=== PATIENT | female | born 1975 ===

== ENCOUNTER 2016-09-07 21:29 | Observation (INO) | payer OTHER ==
[2016-09-07 21:32] VITALS: BMI 27.4
--- NOTE | 2016-09-07 22:09 | ED PDOC ---
Arrival/HPI - General Chief Complaint: Syncope Time Seen by Provider: 09/07/16 21:30 Historian: Patient - History of Present Illness Narrative History of Present Illness (Text): 09/07/16 22:09 A 41 year old female brought in by EMS to the emergency department complaining of lower abdominal pain. Patient reports she ate something and developed pain, currently shaking. EMS reports patient was hypotensive in field. Patient reports urinary incontinence but denies any other complaints at this time. Symptom Onset: Sudden Symptom Course: Unchanged Activities at Onset: Rest Context: Home Past Medical History - Provider Review Nursing Documentation Reviewed: Yes - Infectious Disease Hx of Infectious Diseases: None - Cardiac Hx Hypertension: Yes - Musculoskeletal/Rheumatological Hx Arthritis: Yes Hx Rheumatoid Arthritis: Yes - Psychiatric Hx Substance Use: No - Anesthesia Hx Anesthesia: No Family/Social History - Physician Review Nursing Documentation Reviewed: Yes Family/Social History: No Known Family HX Smoking Status: Never Smoked Hx Alcohol Use: No Hx Substance Use: No Allergies/Home Meds Allergies/Adverse Reactions: Allergies shellfish derived Allergy (Verified 09/07/16 21:32) RASH Review of Systems - Physician Review All systems were reviewed & negative as marked: Yes - Review of Systems Gastrointestinal: Abdominal Pain Genitourinary Female: Other (urinary incontinence) Physical Exam Vital Signs Reviewed: Yes Vital Signs Temp Pulse Resp BP Pulse Ox 09/07/16 22:55 110 H 20 156/95 H 99 09/07/16 21:36 97.9 F 99 H 20 108/59 L 100 Temperature: Afebrile Blood Pressure: Hypotensive Pulse: Regular Respiratory Rate: Normal Appearance: Positive for: Well-Appearing, Non-Toxic, Other (shaky) Pain Distress: None Mental Status: Positive for: Alert and Oriented X 3 - Systems Exam Head: Present: Atraumatic, Normocephalic Pupils: Present: PERRL Extroacular Muscles: Present: EOMI Conjunctiva: Present: Normal Mouth: Present: Moist Mucous Membranes Neck: Present: Normal Range of Motion Respiratory/Chest: Present: Clear to Auscultation, Good Air Exchange. No: Respiratory Distress, Accessory Muscle Use Cardiovascular: Present: Regular Rate and Rhythm, Normal S1, S2. No: Murmurs Abdomen: Present: Normal Bowel Sounds. No: Tenderness, Distention, Peritoneal Signs Back: Present: Normal Inspection Upper Extremity: Present: Normal Inspection. No: Cyanosis, Edema Lower Extremity: Present: Normal Inspection. No: Edema Neurological: Present: GCS=15, CN II-XII Intact, Speech Normal Skin: Present: Warm, Dry, Normal Color. No: Rashes Psychiatric: Present: Alert, Oriented x 3, Normal Insight, Normal Concentration Medical Decision Making ED Course and Treatment: 09/07/16 22:03 Impression: A 41 year old female with lower abdominal pain. Differential Diagnosis included but are not limited to: Plan: -- EKG -- CT head -- CT abd/pelvis -- labs -- Urinalysis -- IV fluids, Zofran -- Reassess and disposition Progress Notes: EKG: Ordered, reviewed, and independently interpreted the EKG. Rate : 98 BPM Rhythm : NSR Interpretation : No ST-segment elevations or depressions, no T-wave inversions, normal intervals. Comparison : No previous EKG for comparison. CT Head Without Intravenous Contrast FINDINGS: BRAIN: Mild, diffuse cortical atrophy and ventriculomegaly, which appear somewhat advanced for age. Recommend clinical correlation. No significant acute abnormality identified. No acute hemorrhage seen within the brain. No acute extra-axial fluid collections visualized. No evidence of significant mass effect within the brain. Normal andres-white matter differentiation. VENTRICLES: See above. BONES/JOINTS: No acute fractures or other acute bony abnormality noted. SOFT TISSUES: No acute abnormality of the visualized soft tissues is seen. SINUSES: Visualized paranasal sinuses appear clear. MASTOID AIR CELLS: Mastoid air cells appear clear. IMPRESSION: - No acute findings seen within the brain. - See above for remaining findings. Dictated and Authenticated by: Sharmila oFntana MD 09/07/2016 11:43 PM Eastern Time ([place] & [place]) CT Abdomen and Pelvis Without Intravenous Contrast FINDINGS: LIMITATIONS: Mild streak/motion artifact. LOWER THORAX: No infiltrate seen in the lung bases. ABDOMEN: LIVER: Hepatomegaly, with the liver measuring 19 cm in length on the coronal images. GALLBLADDER AND BILE DUCTS: No CT evidence of acute cholecystitis. No evidence of significant biliary ductal dilatation. PANCREAS: No CT evidence of acute pancreatitis. SPLEEN: No acute abnormality of the spleen identified. ADRENALS: No acute abnormality of the adrenal glands identified. KIDNEYS AND URETERS: No acute abnormality of the kidneys seen. STOMACH AND BOWEL: Colonic diverticulosis, with no evidence of acute diverticulitis. Otherwise, no significant abnormality of the bowel is identified. No evidence of bowel obstruction. APPENDIX: Appendix is seen, and is within normal limits in appearance. PELVIS: BLADDER: No acute abnormality of the bladder identified. REPRODUCTIVE: Small 2 cm left ovarian/adnexal cystic lesion. This has a benign appearance by CT. No followup is warranted based on the imaging findings, unless otherwise clinically indicated. No acute abnormality of the uterus identified. ABDOMEN and PELVIS: INTRAPERITONEAL SPACE: Small amount of free fluid in the cul-de-sac. This is most likely physiologic in nature. No evidence of free air. BONES/JOINTS: Bony structures appear demineralized. SOFT TISSUES: No acute abnormality of the visualized soft tissues is seen. VASCULATURE: No evidence of abdominal aortic aneurysm. No evidence of periaortic hemorrhage. LYMPH NODES: No evidence of diffuse lymphadenopathy. IMPRESSION: - No evidence of significant acute process on this unenhanced exam. - See above for remaining findings. Dictated and Authenticated by: Sharmila Fontana MD 09/07/2016 11:59 PM Eastern Time ([place] & [place]) case discussed with with medical intern and reyna darling will tele obs for syncope 09/12/16 20:07 - Lab Interpretations Microbiology Results: Microbiology Results 09/07/16 22:05 Blood Blood Culture - Preliminary NO GROWTH AFTER 4 DAYS 09/07/16 21:45 Blood Blood Culture - Preliminary NO GROWTH AFTER 4 DAYS 09/07/16 22:45 Urine,Clean Catch Urine Culture - Final No Growth (<1,000 CFU/ML) Lab Results: 09/07/16 21:45 09/07/16 21:45 Lab Results 09/07/16 23:00: Urine Opiates Screen Negative, Urine Methadone Screen Negative, Ur Barbiturates Screen Negative, Ur Phencyclidine Scrn Negative, Ur Amphetamines Screen Negative, U Benzodiazepines Scrn Negative, U Oth Cocaine Metabols Negative, U Cannabinoids Screen Negative 09/07/16 22:45: Urine Color [place], Urine Appearance Sl cloudy, Urine pH 7.0, Ur Specific [place] 1.020, Urine Protein 30 H, Urine Glucose (UA) Negative, Urine Ketones Trace H, Urine Blood Negative, Urine Nitrate Positive H, Urine Bilirubin Small H, Urine Urobilinogen 1.0 H, Ur Leukocyte Esterase Trace H, Urine RBC 0 - 2, Urine WBC 1 - 3, Ur Epithelial Cells 6 - 8, Urine Bacteria Large 09/07/16 21:45: Sodium 137, Chloride 102, Potassium 3.4 L, Carbon Dioxide 22, Anion Gap 16, BUN 17, Creatinine 0.9, Est GFR ( Amer) > 60, Est GFR (Non- Af Amer) > 60, Random Glucose 131 H, Calcium 8.9, Phosphorus 3.8, Magnesium 1.7 , Total Bilirubin 0.6, AST 54 H, ALT 57 H, Alkaline Phosphatase 62, Troponin I < 0.01, Total Protein 7.2, Albumin 4.0, Globulin 3.2, Albumin/Globulin Ratio 1.3 09/07/16 21:45: pO2 37, VBG pH 7.33, VBG pCO2 49.0, VBG HCO3 25.8, VBG Total CO2 27.3, VBG O2 Sat (Calc) 72.0 H, VBG Base Excess -0.7 L, VBG Potassium 4.1, Sodium 138.0, Chloride 102.0, Glucose 145 H, Lactate 3.1 H, FiO2 21.0, Venous Blood Potassium 4.1 09/07/16 21:45: PT 11.1, INR 1.03, APTT 24.3 09/07/16 21:45: WBC 6.1, RBC 4.18, Hgb 13.0, Hct 39.5, MCV 94.5, MCH 31.1, MCHC 32.9, RDW 12.4, Plt Count 266, MPV 11.5 H, Gran % 38.1 L, Lymph % (Auto) 57.0 H , [place] % (Auto) 2.9, Eos % (Auto) 1.8, Baso % (Auto) 0.2, Gran # 2.34, Lymph # 3.5 H, [place] # 0.2, Eos # 0.1, Baso # 0.01 I have reviewed the lab results: Yes - RAD Interpretation Radiology Orders: 09/07/16 22:50 ABD & PELVIS W/O PO OR IV CONT [CT] Stat 09/07/16 22:56 HEAD W/O CONTRAST [CT] Stat - EKG Interpretation Interpreted by ED Physician: Yes Type: 12 lead EKG - Medication Orders Current Medication Orders: Discontinued Medications Acetaminophen (Tylenol 325mg Tab) 650 mg PO Q4H PRN PRN Reason: Fever >100.4 F Last Admin: 09/08/16 01:30 Dose: 650 mg Sodium Chloride 2,100 ml/ IV (SUPPLIES) 2,100 mls @ 4,354.5 mls/hr IV ONCE ONE PRN Reason: 60 ML/KG/HR Stop: 09/07/16 21:40 Last Admin: 09/07/16 22:20 Dose: 4,354.5 mls/hr Cefepime HCl (Maxipime 1gm) 1 gm in 100 mls @ 100 mls/hr IVPB Q12 JOSIE PRN Reason: Protocol Last Admin: 09/09/16 09:37 Dose: 100 mls/hr Sodium Chloride (Sodium Chloride 0.9%) 1,000 mls @ 100 mls/hr IV .Q10H JOSIE Last Admin: 09/09/16 15:53 Dose: 100 mls/hr Ibuprofen (Motrin Tab) 400 mg PO Q6H PRN PRN Reason: Headache Ondansetron HCl (Zofran Inj) 4 mg IVP STAT STA Stop: 09/07/16 22:51 Last Admin: 09/07/16 22:59 Dose: Not Given Non-Admin Reason: Patient Refused Pantoprazole Sodium (Protonix Inj) 40 mg IVP DAILY [facility] Last Admin: 09/09/16 09:36 Dose: 40 mg - Scribe Statement The provider has reviewed the documentation as recorded by the Talat Brower Provider Scribe Attestation: All medical record entries made by the Scribchristian were at my direction and personally dictated by me. I have reviewed the chart and agree that the record accurately reflects my personal performance of the history, physical exam, medical decision making, and the department course for this patient. I have also personally directed, reviewed, and agree with the discharge instructions and disposition. Disposition/Present on Arrival - Present on Arrival Any Indicators Present on Arrival: No History of DVT/PE: No History of Uncontrolled Diabetes: No Urinary Catheter: No History of Decub. Ulcer: No History Surgical Site Infection Following: None - Disposition Have Diagnosis and Disposition been Completed?: Yes Diagnosis: Syncope Disposition: HOSPITALIZED Disposition Time: 00:25 Condition: GOOD
[2016-09-07 22:28] LABS: VENOUS BLOOD GAS BASE EXCESS -0.7 mmol/L (0.0-2.0); VENOUS BLOOD GAS PO2 37 mm/Hg (30-55); VENOUS BLOOD PH 7.33 (7.32-7.43)
[2016-09-07 22:36] LABS: ALB/GLOB RATIO 1.3 (1.1-1.8); ALT/SGPT 57 U/L (7-56); AST/SGOT 54 U/L (15-39); BLOOD UREA NITROGEN 17 mg/dL (7-21); CALCIUM 8.9 mg/dL (8.4-10.5); GFR AFRICAN-AMERICAN > 60; GFR NON-AFRICAN AMERICAN > 60; MAGNESIUM 1.7 mg/dL (1.7-2.2)
[2016-09-07 22:40] LABS: BASO # 0.01 K/mm3 (0.0-2.0); BASO % 0.2 % (0.0-3.0); EOS # 0.1 (0.0-0.7); EOS % 1.8 % (1.5-5.0); GRAN # 2.34 (1.4-6.5); GRAN % 38.1 % (50.0-68.0); LYMPH # 3.5 (1.2-3.4); MEAN CELL VOLUME 94.5 fL (80.0-105.0); MEAN CORPUSCULAR HEMOGLOBIN 31.1 pg (25.0-35.0); MEAN CORPUSCULAR HGB CONC 32.9 g/dl (31.0-37.0); MEAN PLATELET VOLUME 11.5 fl (7.0-11.0); MONO # 0.2 (0.1-0.6); MONO % 2.9 % (1.0-6.0); PLATELET COUNT 266 10^3/uL (120.0-450.0); RBC 4.18 10^6/uL (3.5-6.1); RED CELL DISTRIBUTION WIDTH 12.4 % (11.5-14.5); WHITE BLOOD COUNT 6.1 10^3/ul (4.5-11.0)
[2016-09-07 22:53] LABS: INR 1.03 (0.93-1.08); PARTIAL THROMBOPLASTIN TIME 24.3 Seconds (23.7-30.8); PROTHROMBIN TIME 11.1 Seconds (9.9-11.8)
[2016-09-07 22:54] LABS: TROPONIN I < 0.01 ng/mL
[2016-09-07 22:54] LABS: URINE BILIRUBIN SMALL (NEGATIVE); URINE BLOOD NEGATIVE (NEGATIVE); URINE GLUCOSE (UA) NEGATIVE (NEGATIVE); URINE LEUKOCYTE ESTERASE TRACE Leu/uL (NEGATIVE); URINE NITRATE POSITIVE (NEGATIVE); URINE PROTEIN 30 mg/dL (<30 mg/dL)
[2016-09-07 22:56] LABS: URINE APPEARANCE SL CLOUDY (CLEAR); URINE COLOR ORANGE (YELLOW)
[2016-09-07 23:10] LABS: URINE RBC 0 - 2 /hpf (0-2)
[2016-09-07 23:11] LABS: URINE BACTERIA LARGE (NEG)
[2016-09-07 23:29] LABS: BARBITURATES, UR NEGATIVE (NEGATIVE); BENZODIAZEPINES, UR NEGATIVE (NEGATIVE); OPIATES, UR NEGATIVE (NEGATIVE); PHENCYCLIDINE, UR NEGATIVE (NEGATIVE)
--- NOTE | 2016-09-07 23:43 | CT ---
EXAM: CT Head Without Intravenous Contrast CLINICAL HISTORY: 41 years old, female; Signs and symptoms; Dizziness and syncope and collapse TECHNIQUE: Axial computed tomography images of the head/brain without intravenous contrast. This CT exam was performed using one or more of the following dose reduction techniques: automated exposure control, adjustment of the mA and/or kV according to patient size, and/or use of iterative reconstruction technique. EXAM DATE/TIME: 09/07/2016 10:56 PM COMPARISON: No relevant prior studies available. FINDINGS: BRAIN: Mild, diffuse cortical atrophy and ventriculomegaly, which appear somewhat advanced for age. Recommend clinical correlation. No significant acute abnormality identified. No acute hemorrhage seen within the brain. No acute extra-axial fluid collections visualized. No evidence of significant mass effect within the brain. Normal andres-white matter differentiation. VENTRICLES: See above. BONES/JOINTS: No acute fractures or other acute bony abnormality noted. SOFT TISSUES: No acute abnormality of the visualized soft tissues is seen. SINUSES: Visualized paranasal sinuses appear clear. MASTOID AIR CELLS: Mastoid air cells appear clear. IMPRESSION: - No acute findings seen within the brain. - See above for remaining findings.
--- NOTE | 2016-09-07 23:59 | CT ---
EXAM: CT Abdomen and Pelvis Without Intravenous Contrast CLINICAL HISTORY: 41 years old, female; Pain; Abdominal pain; Generalized; Additional info: Abd pain TECHNIQUE: Axial computed tomography images of the abdomen and pelvis without intravenous contrast. This CT exam was performed using one or more of the following dose reduction techniques: automated exposure control, adjustment of the mA and/or kV according to patient size, and/or use of iterative reconstruction technique. Coronal and sagittal reformatted images were created and reviewed. EXAM DATE/TIME: 09/07/2016 10:50 PM COMPARISON: No relevant prior studies available. FINDINGS: LIMITATIONS: Mild streak/motion artifact. LOWER THORAX: No infiltrate seen in the lung bases. ABDOMEN: LIVER: Hepatomegaly, with the liver measuring 19 cm in length on the coronal images. GALLBLADDER AND BILE DUCTS: No CT evidence of acute cholecystitis. No evidence of significant biliary ductal dilatation. PANCREAS: No CT evidence of acute pancreatitis. SPLEEN: No acute abnormality of the spleen identified. ADRENALS: No acute abnormality of the adrenal glands identified. KIDNEYS AND URETERS: No acute abnormality of the kidneys seen. STOMACH AND BOWEL: Colonic diverticulosis, with no evidence of acute diverticulitis. Otherwise, no significant abnormality of the bowel is identified. No evidence of bowel obstruction. APPENDIX: Appendix is seen, and is within normal limits in appearance. PELVIS: BLADDER: No acute abnormality of the bladder identified. REPRODUCTIVE: Small 2 cm left ovarian/adnexal cystic lesion. This has a benign appearance by CT. No followup is warranted based on the imaging findings, unless otherwise clinically indicated. No acute abnormality of the uterus identified. ABDOMEN and PELVIS: INTRAPERITONEAL SPACE: Small amount of free fluid in the cul-de-sac. This is most likely physiologic in nature. No evidence of free air. BONES/JOINTS: Bony structures appear demineralized. SOFT TISSUES: No acute abnormality of the visualized soft tissues is seen. VASCULATURE: No evidence of abdominal aortic aneurysm. No evidence of periaortic hemorrhage. LYMPH NODES: No evidence of diffuse lymphadenopathy. IMPRESSION: - No evidence of significant acute process on this unenhanced exam. - See above for remaining findings.
[2016-09-08 01:05] LABS: VENOUS BLOOD GAS BASE EXCESS -0.4 mmol/L (0.0-2.0); VENOUS BLOOD GAS PO2 129 mm/Hg (30-55); VENOUS BLOOD PH 7.38 (7.32-7.43)
[2016-09-08] MEDS: Cefepime 1gm in NS 100ml 1 GM/100 ML BAG IVPB SCH ×3 (01:29→21:43)
[2016-09-08] MEDS: Sodium Chloride 0.9% 1,000 ML IV SCH ×2 (01:29→09:59)
--- NOTE | 2016-09-08 01:41 | CP.PCM.HP ---
History of Present Illness - History of Present Illness History of Present Illness: cc: syncope HPI: Patient is a 41yo female with past medical history of urinary incontinence s/p sling, rheumatoid arthritis, migraines that presents s/p syncopal episode. Patient reports that she was at home and eating dinner when she felt lightheaded and dizzy. She reported sudden flushing, warmth and chills and instructed her uncle to call 911. She states she was on the phone with the freight dispatcher who instructed her to lay down however the next thing she recalls is waking up in the ambulance. She reported that her uncle was holding her when she passed out and denied hitting her head. She stated that yesterday she was in her normal state of health. Denies incidents like this in the past. Denies chest pain, abdominal pain, nausea, vomiting, cough, focal weakness, numbness, tingling, dysuria, frequency, urgency. 12 point ROS as per HPI, otherwise negative PMHx: rheumatoid arthritis, migraines, urinary incontinence PSHx: vaginal sling Medications: denies taking any meds for RA or migraines at this time Allergies: shellfish Family Hx: mother: RA, heart problems; Father: seizure disorder Social Hx: denies alcohol, tobacco and illicit drug use Present on Admission - Present on Admission Any Indicators Present on Admission: No Past Patient History - Infectious Disease Hx of Infectious Diseases: None - Past Social History Smoking Status: Never Smoked - CARDIAC Hx Hypertension: Yes - MUSCULOSKELETAL/RHEUMATOLOGICAL Hx Arthritis: Yes Hx Rheumatoid Arthritis: Yes - PSYCHIATRIC Hx Substance Use: No - SURGICAL HISTORY Hx Surgeries: No - ANESTHESIA Hx Anesthesia: No Meds Allergies/Adverse Reactions: Allergies Allergy/AdvReac Type Severity Reaction Status Date / Time shellfish derived Allergy RASH Verified 09/07/16 21:32 Physical Exam - Constitutional Appears: No Acute Distress - Head Exam Head Exam: ATRAUMATIC, NORMAL INSPECTION, NORMOCEPHALIC - Eye Exam Eye Exam: EOMI, PERRL - ENT Exam ENT Exam: Mucous Membranes Moist - Neck Exam Neck exam: Positive for: Normal Inspection - Respiratory Exam Respiratory Exam: Clear to Auscultation Bilateral. absent: Rales, Rhonchi, Wheezes - Cardiovascular Exam Cardiovascular Exam: RRR, +S1, +S2. absent: Gallop, Rubs, Systolic Murmur - GI/Abdominal Exam GI & Abdominal Exam: Soft. absent: Distended, Firm, Guarding, Rebound, Tenderness - Extremities Exam Extremities exam: Positive for: normal inspection, pedal pulses present. Negative for: calf tenderness, pedal edema, tenderness - Neurological Exam Neurological exam: Alert, CN II-XII Intact, Oriented x3 - Psychiatric Exam Psychiatric exam: Normal Affect, Normal Mood - Skin Skin Exam: Dry, Intact, Normal Color, Warm Results - Vital Signs Recent Vital Signs: Last Vital Signs Temp 97.9 F 09/07/16 21:36 Pulse 110 H 09/07/16 22:55 Resp 20 09/07/16 22:55 BP 156/95 H 09/07/16 22:55 Pulse Ox 99 09/07/16 22:55 - Labs Result Diagrams: 09/07/16 21:45 09/07/16 21:45 Labs: Laboratory Results - last 24 hr 09/07/16 09/07/16 09/07/16 21:45 21:45 21:45 WBC 6.1 RBC 4.18 Hgb 13.0 Hct 39.5 MCV 94.5 MCH 31.1 MCHC 32.9 RDW 12.4 Plt Count 266 MPV 11.5 H Gran % 38.1 L Lymph % (Auto) 57.0 H [place] % (Auto) 2.9 Eos % (Auto) 1.8 Baso % (Auto) 0.2 Gran # 2.34 Lymph # 3.5 H [place] # 0.2 Eos # 0.1 Baso # 0.01 PT 11.1 INR 1.03 APTT 24.3 pO2 37 VBG pH 7.33 VBG pCO2 49.0 VBG HCO3 25.8 VBG Total CO2 27.3 VBG O2 Sat (Calc) 72.0 H VBG Base Excess -0.7 L VBG Potassium 4.1 Sodium 138.0 Chloride 102.0 Glucose 145 H Lactate 3.1 H FiO2 21.0 Potassium Carbon Dioxide Anion Gap BUN Creatinine Est GFR ( Amer) Est GFR (Non-Af Amer) Random Glucose Calcium Phosphorus Magnesium Total Bilirubin AST ALT Alkaline Phosphatase Troponin I Total Protein Albumin Globulin Albumin/Globulin Ratio Venous Blood Potassium 4.1 Urine Color Urine Appearance Urine pH Ur Specific [place] Urine Protein Urine Glucose (UA) Urine Ketones Urine Blood Urine Nitrate Urine Bilirubin Urine Urobilinogen Ur Leukocyte Esterase Urine RBC Urine WBC Ur Epithelial Cells Urine Bacteria Urine Opiates Screen Urine Methadone Screen Ur Barbiturates Screen Ur Phencyclidine Scrn Ur Amphetamines Screen U Benzodiazepines Scrn U Oth Cocaine Metabols U Cannabinoids Screen 09/07/16 09/07/16 09/07/16 21:45 22:45 23:00 WBC RBC Hgb Hct MCV MCH MCHC RDW Plt Count MPV Gran % Lymph % (Auto) [place] % (Auto) Eos % (Auto) Baso % (Auto) Gran # Lymph # [place] # Eos # Baso # PT INR APTT pO2 VBG pH VBG pCO2 VBG HCO3 VBG Total CO2 VBG O2 Sat (Calc) VBG Base Excess VBG Potassium Sodium 137 Chloride 102 Glucose Lactate FiO2 Potassium 3.4 L Carbon Dioxide 22 Anion Gap 16 BUN 17 Creatinine 0.9 Est GFR ( Amer) > 60 Est GFR (Non-Af Amer) > 60 Random Glucose 131 H Calcium 8.9 Phosphorus 3.8 Magnesium 1.7 Total Bilirubin 0.6 AST 54 H ALT 57 H Alkaline Phosphatase 62 Troponin I < 0.01 Total Protein 7.2 Albumin 4.0 Globulin 3.2 Albumin/Globulin Ratio 1.3 Venous Blood Potassium Urine Color [place] Urine Appearance Sl cloudy Urine pH 7.0 Ur Specific [place] 1.020 Urine Protein 30 H Urine Glucose (UA) Negative Urine Ketones Trace H Urine Blood Negative Urine Nitrate Positive H Urine Bilirubin Small H Urine Urobilinogen 1.0 H Ur Leukocyte Esterase Trace H Urine RBC 0 - 2 Urine WBC 1 - 3 Ur Epithelial Cells 6 - 8 Urine Bacteria Large Urine Opiates Screen Negative Urine Methadone Screen Negative Ur Barbiturates Screen Negative Ur Phencyclidine Scrn Negative Ur Amphetamines Screen Negative U Benzodiazepines Scrn Negative U Oth Cocaine Metabols Negative U Cannabinoids Screen Negative 09/08/16 01:00 WBC RBC Hgb Hct MCV MCH MCHC RDW Plt Count MPV Gran % Lymph % (Auto) [place] % (Auto) Eos % (Auto) Baso % (Auto) Gran # Lymph # [place] # Eos # Baso # PT INR APTT pO2 129 H VBG pH 7.38 VBG pCO2 42.0 VBG HCO3 24.8 VBG Total CO2 26.1 VBG O2 Sat (Calc) 99.9 H VBG Base Excess -0.4 L VBG Potassium 3.6 Sodium 140.0 Chloride 109.0 H Glucose 148 H Lactate 1.8 FiO2 21.0 Potassium Carbon Dioxide Anion Gap BUN Creatinine Est GFR ( Amer) Est GFR (Non-Af Amer) Random Glucose Calcium Phosphorus Magnesium Total Bilirubin AST ALT Alkaline Phosphatase Troponin I Total Protein Albumin Globulin Albumin/Globulin Ratio Venous Blood Potassium 3.6 Urine Color Urine Appearance Urine pH Ur Specific [place] Urine Protein Urine Glucose (UA) Urine Ketones Urine Blood Urine Nitrate Urine Bilirubin Urine Urobilinogen Ur Leukocyte Esterase Urine RBC Urine WBC Ur Epithelial Cells Urine Bacteria Urine Opiates Screen Urine Methadone Screen Ur Barbiturates Screen Ur Phencyclidine Scrn Ur Amphetamines Screen U Benzodiazepines Scrn U Oth Cocaine Metabols U Cannabinoids Screen Assessment & Plan - Assessment and Plan (Free Text) Assessment: 41yo female with history of RA, urinary incontinence, migraines presents s/p syncopal episode at home 1. Syncope 2. UTI 3. Hx of migraines 4. Hx of rheumatoid arthritis 5. Hx of urinary incontinence Plan: -Syncopal episode can possibly be secondary but not limited to pre-menopausal symptoms, migraines, sepsis 2/2 UTI, cardiac pathology etc -Patient presented with postive UTI, afebrile, no leukocytosis and lactate of 3.1 however repeat lactate was 1.8; will continue to treat with cefepime at this time -Head CT revealed no acute intracranial abnormalities -CT abd/pelvis w/o contrast showed no significant acute process -Blood and urine cultures are pending -Procalcitonin is pending -Will continue with IVF hydration with NS @ 100cc/hr -Will obtain cardiology consult with Dr. Monet, neurology consult with Dr. Grimes and ID consult with Dr. Ren -FSH/LH pending for evaluation of possible pre-menopausal cause of her syncopal episode given her description of her symptoms -Obtain orthostatic vital signs -Echocardiogram for evaluation of potential anatomic cause of her syncopal episode -Protonix and SCD's for GI/DVT prophylaxis - Date & Time Date: 09/08/16 Time: 01:41
[2016-09-08 07:29] LABS: BASO # 0.03 K/mm3 (0.0-2.0); BASO % 0.3 % (0.0-3.0); EOS # 0.2 (0.0-0.7); EOS % 1.4 % (1.5-5.0); GRAN # 8.38 (1.4-6.5); GRAN % 72.9 % (50.0-68.0); HEMOGLOBIN 12.4 gm/dL (12.0-16.0); LYMPH # 2.4 (1.2-3.4); MEAN CELL VOLUME 94.4 fL (80.0-105.0); MEAN CORPUSCULAR HEMOGLOBIN 31.4 pg (25.0-35.0); MEAN CORPUSCULAR HGB CONC 33.2 g/dl (31.0-37.0); MEAN PLATELET VOLUME 11.1 fl (7.0-11.0); MONO # 0.5 (0.1-0.6); MONO % 4.4 % (1.0-6.0); PLATELET COUNT 270 10^3/uL (120.0-450.0); RBC 3.95 10^6/uL (3.5-6.1); RED CELL DISTRIBUTION WIDTH 12.4 % (11.5-14.5); WHITE BLOOD COUNT 11.5 10^3/ul (4.5-11.0)
[2016-09-08 07:38] LABS: ALB/GLOB RATIO 1.3 (1.1-1.8); ALBUMIN 3.4 g/dL (3.0-4.8); ALT/SGPT 168 U/L (7-56); AST/SGOT 177 U/L (15-39); BLOOD UREA NITROGEN 10 mg/dL (7-21); CALCIUM 8.3 mg/dL (8.4-10.5); GFR AFRICAN-AMERICAN > 60; GFR NON-AFRICAN AMERICAN > 60
--- NOTE | 2016-09-08 20:15 | CARD ---
APPROVED REPORT EKG Measurement Heart [id number] <Conclusion> Normal sinus rhythm Normal ECG
[2016-09-08 21:31] LABS: ALB/GLOB RATIO 1.2 (1.1-1.8); ALBUMIN 3.7 g/dL (3.0-4.8); ALT/SGPT 218 U/L (7-56); AST/SGOT 171 U/L (15-39); BILIRUBIN,DIRECT 0.3 mg/dL (0.0-0.4)
[2016-09-08 21:45] LABS: TROPONIN I < 0.01 ng/mL
--- NOTE | 2016-09-08 22:43 | CP.PCM.CON ---
History of Present Illness - History of Present Illness History of Present Illness: Infectious Disease Consultation: September 08, 2016 41 yo female with near syncopal episode. She was lightheaded and dizzy. She complains of feeling weak and tired. According to EMS, the patient did lose consciousness. Urine studies suggesting UTI. PMHx: Rheumatoid arthritis, Migraines, Urinary incontinence. PSHx: Vaginal Sling Allergies: ShellFish Social Hx: No tobacco, EtOH, or illicit drug use. Active Medications Cefepime HCl (Maxipime 1gm) 1 gm in 100 mls @ 100 mls/hr IVPB Q12 JOSIE PRN Reason: Protocol Last Admin: 09/08/16 21:43 Dose: 100 mls/hr Sodium Chloride (Sodium Chloride 0.9%) 1,000 mls @ 100 mls/hr IV .Q10H JOSIE Last Admin: 09/08/16 09:59 Dose: 100 mls/hr Ibuprofen (Motrin Tab) 400 mg PO Q6H PRN PRN Reason: Headache Pantoprazole Sodium (Protonix Inj) 40 mg IVP DAILY JOSIE Last Admin: 09/08/16 09:41 Dose: 40 mg Family Hx: mother: Rheumatoid Arthritis, Cardiac issues Father: history of seizures ROS: loss of consciousness, weakness, fatigue. Supportive care. No fevers, chills, nausea, vomiting, diarrhea, headaches, dizziness, chest pain, abdominal pain, melena, hematuria, hematemesis, hematochezia. Past Patient History - Infectious Disease Hx of Infectious Diseases: None - Past Social History Smoking Status: Never Smoked - CARDIAC Hx Hypertension: Yes - MUSCULOSKELETAL/RHEUMATOLOGICAL Hx Arthritis: Yes Hx Rheumatoid Arthritis: Yes - PSYCHIATRIC Hx Substance Use: No - SURGICAL HISTORY Hx Surgeries: No - ANESTHESIA Hx Anesthesia: No Meds Allergies/Adverse Reactions: Allergies Allergy/AdvReac Type Severity Reaction Status Date / Time shellfish derived Allergy RASH Verified 09/07/16 21:32 - Medications Medications: Current Medications Cefepime HCl (Maxipime 1gm) 1 gm in 100 mls @ 100 mls/hr IVPB Q12 JOSIE PRN Reason: Protocol Last Admin: 09/08/16 21:43 Dose: 100 mls/hr Sodium Chloride (Sodium Chloride 0.9%) 1,000 mls @ 100 mls/hr IV .Q10H JOSIE Last Admin: 09/08/16 09:59 Dose: 100 mls/hr Ibuprofen (Motrin Tab) 400 mg PO Q6H PRN PRN Reason: Headache Pantoprazole Sodium (Protonix Inj) 40 mg IVP DAILY JOSIE Last Admin: 09/08/16 09:41 Dose: 40 mg Physical Exam - Constitutional Appears: Non-toxic, No Acute Distress - Head Exam Head Exam: ATRAUMATIC, NORMOCEPHALIC - Eye Exam Eye Exam: EOMI, PERRL Pupil Exam: NORMAL ACCOMODATION, PERRL - ENT Exam ENT Exam: Mucous Membranes Moist, Normal External Ear Exam, TM's Normal Bilaterally - Neck Exam Neck exam: Positive for: Full Rom, Normal Inspection - Respiratory Exam Respiratory Exam: Clear to Auscultation Bilateral, NORMAL BREATHING PATTERN. absent: Rales, Rhonchi, Wheezes - Cardiovascular Exam Cardiovascular Exam: REGULAR RHYTHM, RRR, +S1, +S2 - GI/Abdominal Exam GI & Abdominal Exam: Normal Bowel Sounds, Soft. absent: Distended, Tenderness - Extremities Exam Extremities exam: Positive for: full ROM, normal inspection - Neurological Exam Neurological exam: Alert, CN II-XII Intact, Oriented x3 - Psychiatric Exam Psychiatric exam: Normal Affect, Normal Mood - Skin Skin Exam: Intact, Normal Color Results - Vital Signs Recent Vital Signs: Last Vital Signs Temp 98.8 F 09/08/16 06:00 Pulse 87 09/08/16 06:00 Resp 22 09/08/16 06:00 BP 107/58 L 09/08/16 06:00 Pulse Ox 97 09/08/16 06:00 - Labs Result Diagrams: 09/08/16 07:10 09/08/16 07:10 Labs: Laboratory Results - last 24 hr 09/08/16 09/08/16 09/08/16 01:00 07:10 07:10 WBC RBC Hgb Hct MCV MCH MCHC RDW Plt Count MPV Gran % Lymph % (Auto) [place] % (Auto) Eos % (Auto) Baso % (Auto) Gran # Lymph # [place] # Eos # Baso # pO2 129 H VBG pH 7.38 VBG pCO2 42.0 VBG HCO3 24.8 VBG Total CO2 26.1 VBG O2 Sat (Calc) 99.9 H VBG Base Excess -0.4 L VBG Potassium 3.6 Sodium 140.0 Chloride 109.0 H Glucose 148 H Lactate 1.8 FiO2 21.0 Potassium Carbon Dioxide Anion Gap BUN Creatinine Est GFR ( Amer) Est GFR (Non-Af Amer) Random Glucose Lactic Acid 1.1 Calcium Total Bilirubin Direct Bilirubin AST ALT Alkaline Phosphatase Troponin I Total Protein Albumin Globulin Albumin/Globulin Ratio Procalcitonin 0.81 H FSH 3rd Generation Luteinizing Hormone Venous Blood Potassium 3.6 09/08/16 09/08/16 09/08/16 07:10 07:10 07:10 WBC 11.5 H D RBC 3.95 Hgb 12.4 Hct 37.3 MCV 94.4 MCH 31.4 MCHC 33.2 RDW 12.4 Plt Count 270 MPV 11.1 H Gran % 72.9 H Lymph % (Auto) 21.0 L [place] % (Auto) 4.4 Eos % (Auto) 1.4 L Baso % (Auto) 0.3 Gran # 8.38 H Lymph # 2.4 [place] # 0.5 Eos # 0.2 Baso # 0.03 pO2 VBG pH VBG pCO2 VBG HCO3 VBG Total CO2 VBG O2 Sat (Calc) VBG Base Excess VBG Potassium Sodium 139 Chloride 108 Glucose Lactate FiO2 Potassium 3.8 Carbon Dioxide 23 Anion Gap 12 BUN 10 Creatinine 0.7 Est GFR ( Amer) > 60 Est GFR (Non-Af Amer) > 60 Random Glucose 90 Lactic Acid Calcium 8.3 L Total Bilirubin 0.3 Direct Bilirubin AST 177 H ALT 168 H Alkaline Phosphatase 61 Troponin I Total Protein 6.2 Albumin 3.4 Globulin 2.7 Albumin/Globulin Ratio 1.3 Procalcitonin FSH 3rd Generation 5.0 Luteinizing Hormone 14.3 Venous Blood Potassium 09/08/16 09/08/16 11:00 20:50 WBC RBC Hgb Hct MCV MCH MCHC RDW Plt Count MPV Gran % Lymph % (Auto) [place] % (Auto) Eos % (Auto) Baso % (Auto) Gran # Lymph # [place] # Eos # Baso # pO2 VBG pH VBG pCO2 VBG HCO3 VBG Total CO2 VBG O2 Sat (Calc) VBG Base Excess VBG Potassium Sodium Chloride Glucose Lactate FiO2 Potassium Carbon Dioxide Anion Gap BUN Creatinine Est GFR ( Amer) Est GFR (Non-Af Amer) Random Glucose Lactic Acid Calcium Total Bilirubin 0.4 Direct Bilirubin 0.3 AST 171 H ALT 218 H Alkaline Phosphatase 61 Troponin I 0.04 D < 0.01 D Total Protein 6.9 Albumin 3.7 Globulin 3.1 Albumin/Globulin Ratio 1.2 Procalcitonin FSH 3rd Generation Luteinizing Hormone Venous Blood Potassium Assessment & Plan - Assessment and Plan (Free Text) Assessment: 41 yo female with syncopal episode. Cannot rule out dehydration and UTI as potential causes. There is also a history of migraines, rheumatoid arthritis, and urinary incontinence. Patient started on Cefepime for antibiotic coverage. Urine cultures pending at this time. Dehydration also played a part in this patient's condition with elevation in BUN and Creatinine. Urinalysis is suggestive of UTI. Afebrile while in hospital so far. Thank you for allowing me to participate in the care of the patient, we will follow with you. Consider up to 7 days of antibiotics (possibly PO) depending on urine culture results.
[2016-09-09 06:08] VITALS: O2SAT 98
[2016-09-09 07:15] LABS: BASO # 0.02 K/mm3 (0.0-2.0); BASO % 0.3 % (0.0-3.0); EOS # 0.3 (0.0-0.7); EOS % 3.9 % (1.5-5.0); GRAN # 2.78 (1.4-6.5); GRAN % 43.9 % (50.0-68.0); HEMOGLOBIN 11.7 gm/dL (12.0-16.0); LYMPH # 2.9 (1.2-3.4); LYMPH % 45.7 % (22.0-35.0); MEAN CELL VOLUME 94.9 fL (80.0-105.0); MEAN CORPUSCULAR HEMOGLOBIN 31.1 pg (25.0-35.0); MEAN CORPUSCULAR HGB CONC 32.8 g/dl (31.0-37.0); MEAN PLATELET VOLUME 11.5 fl (7.0-11.0); MONO # 0.4 (0.1-0.6); MONO % 6.2 % (1.0-6.0); PLATELET COUNT 226 10^3/uL (120.0-450.0); RBC 3.76 10^6/uL (3.5-6.1); RED CELL DISTRIBUTION WIDTH 12.7 % (11.5-14.5); WHITE BLOOD COUNT 6.3 10^3/ul (4.5-11.0)
[2016-09-09 07:23] LABS: ALB/GLOB RATIO 1.1 (1.1-1.8); ALBUMIN 3.3 g/dL (3.0-4.8); ALT/SGPT 180 U/L (7-56); AST/SGOT 104 U/L (15-39); BLOOD UREA NITROGEN 10 mg/dL (7-21); CALCIUM 8.6 mg/dL (8.4-10.5); GFR AFRICAN-AMERICAN > 60; GFR NON-AFRICAN AMERICAN > 60
--- NOTE | 2016-09-09 07:43 | CARD ---
APPROVED REPORT EXAM: Two-dimensional and M-mode echocardiogram with Doppler and color Doppler. INDICATION Syncope 2D DIMENSIONS Left Atrium (2D)3.9 (1.6-4.0cm)IVSd0.8 (0.7-1.1cm) LVDd4.4 (3.9-5.9cm)PWd0.8 (0.7-1.1cm) LVDs3.0 (2.5-4.0cm)FS (%) 31.2 % LVEF (%)59.2 (>50%) M-Mode DIMENSIONS Aortic Root2.90 (2.2-3.7cm)Aortic Cusp Exc.1.80 (1.5-2.0cm) Aortic Valve AoV Peak Zguzfydp592.0cm/Raghav Peak GR.6mmHg Mitral Valve MV E Bumknoti98.2cm/sMV A Qszjjily89.7cm/sE/A ratio1.1 TDI Lateral E' Peak V15.00cm/sMedial E' Peak V8.87cm/sE/Lateral E'5.9 E/Medial E'9.9 Pulmonary Valve PV Peak Nuxhehib73.9cm/sPV Peak Grad.2mmHg Tricuspid Valve TR Peak [id number]/sRAP [id number] Peak Gr.26mmHg [id number] LEFT VENTRICLE The left ventricle is normal size. There is normal left ventricular wall thickness. The left ventricular function is normal.EF-55-60% There is normal LV segmental wall motion. The left ventricular diastolic function is normal. No left ventricle thrombus noted on this study. There is no ventricular septal defect visualized. There is no left ventricular aneurysm. There is no mass noted in the left ventricle. RIGHT VENTRICLE The right ventricle is normal size. There is normal right ventricular wall thickness. The right ventricular systolic function is normal. ATRIA The left atrium size is normal. The right atrium size is normal. The interatrial septum is intact with no evidence for an atrial septal defect. AORTIC VALVE The aortic valve is thickened but opens well. No aortic regurgitation is present. There is no aortic valvular stenosis. There is no aortic valvular vegetation. MITRAL VALVE The mitral valve is thickened but opens well. Mitral regurgitation is mild. There is no mitral valve stenosis. There is no evidence of mitral valve prolapse. TRICUSPID VALVE The tricuspid valve leaflets are thickened , but open well. There is mild tricuspid regurgitation.RVSP-36 mmof hg. There is no tricuspid valve stenosis. There is no tricuspid valve prolapse or vegetation. PULMONIC VALVE The pulmonary valve is normal in structure. There is trace pulmonic valvular regurgitation. There is no pulmonic valvular stenosis. GREAT VESSELS The aortic root is normal in size. The ascending aorta is normal in size. The pulmonary artery is normal. The IVC is normal in size and collapses >50% with inspiration. PERICARDIAL EFFUSION There is no pleural effusion. There is no pericardial effusion. <Conclusion> Normal chamber size. EF-55-60% Mild MR/TR RVSP-36 mmof hg. no vegetation or thrombus noted.
[2016-09-09] MEDS: Cefepime 1gm in NS 100ml 1 GM/100 ML BAG IVPB SCH (09:37)
--- NOTE | 2016-09-09 10:55 | US ---
HISTORY: transaminitis COMPARISON: None. TECHNIQUE: Sonographic evaluation of the abdomen. FINDINGS: LIVER: Measures 13.8 cm. Hepatopedal blood flow. Fatty infiltration manifest ultrasonographically as increased echogenicity of the liver parenchyma. No mass. No intrahepatic bile duct dilatation. GALLBLADDER: Unremarkable. No gallstones. COMMON BILE DUCT: Measures 4.2 mm. No stones. No dilatation. PANCREAS: Unremarkable as visualized. No mass. No ductal dilatation. RIGHT KIDNEY: Measures 4.6 x 10.2cm. Normal echogenicity. No calculus, mass, or hydronephrosis. LEFT KIDNEY: Measures 5.7 x 9.6cm. Normal echogenicity. No calculus, mass, or hydronephrosis. SPLEEN: Normal in size and contour. No mass. AORTA: No aneurysmal dilatation. IVC: Unremarkable. OTHER FINDINGS: None. IMPRESSION: Hepatic steatosis. No acute findings.
--- NOTE | 2016-09-09 15:03 | CP.PCM.DIS ---
<Rickey Varghese - Last Filed: 09/09/16 14:59> Provider - Provider Date of Admission: 09/08/16 00:28 Attending physician: Bina Pat MD Consults: Dr. Herman - Neurology Dr. Zendejas - cardiology Time Spent in preparation of Discharge (in minutes): 35 Diagnosis - Discharge Diagnosis (1) Syncope Status: Acute Hospital Course - Lab Results Lab Results: Most Recent Lab Values WBC 6.3 10^3/ul (4.5-11.0) D 09/09/16 06:30 RBC 3.76 10^6/uL (3.5-6.1) 09/09/16 06:30 Hgb 11.7 gm/dL (12.0-16.0) L 09/09/16 06:30 Hct 35.7 % (36.0-48.0) L 09/09/16 06:30 MCV 94.9 fL (80.0-105.0) 09/09/16 06:30 MCH 31.1 pg (25.0-35.0) 09/09/16 06:30 MCHC 32.8 g/dl (31.0-37.0) 09/09/16 06:30 RDW 12.7 % (11.5-14.5) 09/09/16 06:30 Plt Count 226 10^3/uL (120.0-450.0) 09/09/16 06:30 MPV 11.5 fl (7.0-11.0) H 09/09/16 06:30 Gran % 43.9 % (50.0-68.0) L 09/09/16 06:30 Lymph % (Auto) 45.7 % (22.0-35.0) H 09/09/16 06:30 [place] % (Auto) 6.2 % (1.0-6.0) H 09/09/16 06:30 Eos % (Auto) 3.9 % (1.5-5.0) 09/09/16 06:30 Baso % (Auto) 0.3 % (0.0-3.0) 09/09/16 06:30 Gran # 2.78 (1.4-6.5) 09/09/16 06:30 Lymph # 2.9 (1.2-3.4) 09/09/16 06:30 [place] # 0.4 (0.1-0.6) 09/09/16 06:30 Eos # 0.3 (0.0-0.7) 09/09/16 06:30 Baso # 0.02 K/mm3 (0.0-2.0) 09/09/16 06:30 PT 11.1 Seconds (9.9-11.8) 09/07/16 21:45 INR 1.03 (0.93-1.08) 09/07/16 21:45 APTT 24.3 Seconds (23.7-30.8) 09/07/16 21:45 pO2 129 mm/Hg (30-55) H 09/08/16 01:00 VBG pH 7.38 (7.32-7.43) 09/08/16 01:00 VBG pCO2 42.0 (40-60) 09/08/16 01:00 VBG HCO3 24.8 mmol/l (21-28) 09/08/16 01:00 VBG Total CO2 26.1 mmol.L (22-28) 09/08/16 01:00 VBG O2 Sat (Calc) 99.9 % (40-65) H 09/08/16 01:00 VBG Base Excess -0.4 mmol/L (0.0-2.0) L 09/08/16 01:00 VBG Potassium 3.6 mmol/L (3.6-5.2) 09/08/16 01:00 Sodium 140.0 mmol/L (132-148) 09/08/16 01:00 Chloride 109.0 mmol/L (98-107) H 09/08/16 01:00 Glucose 148 mg/dl (65-105) H 09/08/16 01:00 Lactate 1.8 mmol/L (0.7-2.1) 09/08/16 01:00 FiO2 21.0 % 09/08/16 01:00 Sodium 140 mmol/L (132-148) 09/09/16 06:30 Potassium 4.2 mmol/L (3.6-5.0) 09/09/16 06:30 Chloride 109 mmol/L (98-107) H 09/09/16 06:30 Carbon Dioxide 22 mmol/L (21-33) 09/09/16 06:30 Anion Gap 13 (10-20) 09/09/16 06:30 BUN 10 mg/dL (7-21) 09/09/16 06:30 Creatinine 0.8 mg/dL (0.5-1.4) 09/09/16 06:30 Est GFR ( Amer) > 60 09/09/16 06:30 Est GFR (Non-Af Amer) > 60 09/09/16 06:30 Random Glucose 86 mg/dL (70-110) 09/09/16 06:30 Lactic Acid 1.1 mmol/L (0.7-2.1) 09/08/16 07:10 Calcium 8.6 mg/dL (8.4-10.5) 09/09/16 06:30 Phosphorus 3.8 mg/dL (2.5-4.5) 09/07/16 21:45 Magnesium 1.7 mg/dL (1.7-2.2) 09/07/16 21:45 Total Bilirubin 0.5 mg/dL (0.2-1.3) 09/09/16 06:30 Direct Bilirubin 0.3 mg/dL (0.0-0.4) 09/08/16 20:50 AST 104 U/L (15-39) H 09/09/16 06:30 ALT 180 U/L (7-56) H 09/09/16 06:30 Alkaline Phosphatase 55 U/L (38-133) 09/09/16 06:30 Troponin I < 0.01 ng/mL D 09/08/16 20:50 Total Protein 6.3 g/dL (5.8-8.3) 09/09/16 06:30 Albumin 3.3 g/dL (3.0-4.8) 09/09/16 06:30 Globulin 2.9 gm/dL 09/09/16 06:30 Albumin/Globulin Ratio 1.1 (1.1-1.8) 09/09/16 06:30 Procalcitonin 0.81 NG/ML (0.19-0.49) H 09/08/16 07:10 FSH 3rd Generation 5.0 mIU/mL 09/08/16 07:10 Luteinizing Hormone 14.3 mIU/mL 09/08/16 07:10 Venous Blood Potassium 3.6 mmol/L (3.6-5.2) 09/08/16 01:00 Urine Color [place] (YELLOW) 09/07/16 22:45 Urine Appearance Sl cloudy (CLEAR) 09/07/16 22:45 Urine pH 7.0 (4.7-8.0) 09/07/16 22:45 Ur Specific [place] 1.020 (1.005-1.035) 09/07/16 22:45 Urine Protein 30 mg/dL (<30 mg/dL) H 09/07/16 22:45 Urine Glucose (UA) Negative mg/dL (NEGATIVE) 09/07/16 22:45 Urine Ketones Trace mg/dL (NEGATIVE) H 09/07/16 22:45 Urine Blood Negative (NEGATIVE) 09/07/16 22:45 Urine Nitrate Positive (NEGATIVE) H 09/07/16 22:45 Urine Bilirubin Small (NEGATIVE) H 09/07/16 22:45 Urine Urobilinogen 1.0 E.U./dL (<1 E.U./dL) H 09/07/16 22:45 Ur Leukocyte Esterase Trace Cammy/uL (NEGATIVE) H 09/07/16 22:45 Urine RBC 0 - 2 /hpf (0-2) 09/07/16 22:45 Urine WBC 1 - 3 /hpf (0-6) 09/07/16 22:45 Ur Epithelial Cells 6 - 8 /hpf (0-5) 09/07/16 22:45 Urine Bacteria Large (NEG) 09/07/16 22:45 Urine Opiates Screen Negative (NEGATIVE) 09/07/16 23:00 Urine Methadone Screen Negative (NEGATIVE) 09/07/16 23:00 Ur Barbiturates Screen Negative (NEGATIVE) 09/07/16 23:00 Ur Phencyclidine Scrn Negative (NEGATIVE) 09/07/16 23:00 Ur Amphetamines Screen Negative (NEGATIVE) 09/07/16 23:00 U Benzodiazepines Scrn Negative (NEGATIVE) 09/07/16 23:00 U Oth Cocaine Metabols Negative (NEGATIVE) 09/07/16 23:00 U Cannabinoids Screen Negative (NEGATIVE) 09/07/16 23:00 - Hospital Course Hospital Course: Patient is a 41yo female with past medical history of urinary incontinence s/p sling, rheumatoid arthritis, migraines that presents s/p syncopal episode. Patient reports that she was at home and eating dinner when she felt lightheaded and dizzy. She reported sudden flushing, warmth and chills and instructed her uncle to call 911. She states she was on the phone with the ship pilot dispatcher who instructed her to lay down however the next thing she recalls is waking up in the ambulance. She reported that her uncle was holding her when she passed out and denied hitting her head. She stated that yesterday she was in her normal state of health. Denies incidents like this in the past. Denies chest pain, abdominal pain, nausea, vomiting, cough, focal weakness, numbness, tingling, dysuria, frequency, urgency. The patient was admitted for w/u of syncope. Initial cardiac evaluation did not reveal any arrhythmia or cardiac ischemia. Cardiac enzymes were negative. Cardiology was consulted and it was determined the etiology of patient's syncope was not cardiac in nature. The patient can f/ u with Dr. Zendejas for outpatient stress testing. The case was discussed with neurology who determined that the patient likely suffered a vaso-vagal event and that this is not due to seizure activity or acute ischemic event. CT head was unremarkable. LFT's were found to be elevated during hospital stay. This is likely due to transient hypotension which likely occured during syncopal event. LFT are trending down prior to discharge. The patient is instructed to f/u with her PCP within 72 hrs for repeat liver profile and further evaluation. She is instructed to avoid tylenol. Discharge Exam - Head Exam Head Exam: ATRAUMATIC, NORMOCEPHALIC - Eye Exam Eye Exam: EOMI, PERRL - ENT Exam ENT Exam: Mucous Membranes Moist - Respiratory Exam Respiratory Exam: Clear to PA & Lateral, NORMAL BREATHING PATTERN - Cardiovascular Exam Cardiovascular Exam: REGULAR RHYTHM, +S1, +S2 - GI/Abdominal Exam GI & Abdominal Exam: Normal Bowel Sounds, Unremarkable - Extremities Exam Extremities exam: full ROM, pedal pulses present - Neurological Exam Neurological exam: Alert, CN II-XII Intact, Oriented x3 - Psychiatric Exam Psychiatric exam: Normal Affect, Normal Mood - Skin Skin Exam: Dry, Warm Discharge Plan - Follow Up Plan Condition: GOOD Disposition: HOME/ ROUTINE Instructions: Urinary Tract Infection in Women (DC), Syncope (GEN) Additional Instructions: Please see your primary care doctor within 72 hours to repeat liver profile blood work. Please avoid tylenol until cleared by your doctor. You will be scheduled for a cardiac stress test with Dr. Zendejas. Please call his office tomorrow to schedule this. Nursing Dr. Zendejas's phone number is [phone] If you begin to experience weakness, dizziness, chest pain, shortness of breath , your symptoms return or any changes, return to the nearest emergency room or call 911. See care notes provided for further instructions. Referrals: Bina Zendejas MD [Staff Provider] - Jean Herman MD [Staff Provider] - <Leyla Mendez - Last Filed: 09/09/16 18:12> Provider - Provider Date of Admission: 09/08/16 00:28 Attending physician: Bina Pat MD Hospital Course - Lab Results Lab Results: Most Recent Lab Values WBC 6.3 10^3/ul (4.5-11.0) D 09/09/16 06:30 RBC 3.76 10^6/uL (3.5-6.1) 09/09/16 06:30 Hgb 11.7 gm/dL (12.0-16.0) L 09/09/16 06:30 Hct 35.7 % (36.0-48.0) L 09/09/16 06:30 MCV 94.9 fL (80.0-105.0) 09/09/16 06:30 MCH 31.1 pg (25.0-35.0) 09/09/16 06:30 MCHC 32.8 g/dl (31.0-37.0) 09/09/16 06:30 RDW 12.7 % (11.5-14.5) 09/09/16 06:30 Plt Count 226 10^3/uL (120.0-450.0) 09/09/16 06:30 MPV 11.5 fl (7.0-11.0) H 09/09/16 06:30 Gran % 43.9 % (50.0-68.0) L 09/09/16 06:30 Lymph % (Auto) 45.7 % (22.0-35.0) H 09/09/16 06:30 [place] % (Auto) 6.2 % (1.0-6.0) H 09/09/16 06:30 Eos % (Auto) 3.9 % (1.5-5.0) 09/09/16 06:30 Baso % (Auto) 0.3 % (0.0-3.0) 09/09/16 06:30 Gran # 2.78 (1.4-6.5) 09/09/16 06:30 Lymph # 2.9 (1.2-3.4) 09/09/16 06:30 [place] # 0.4 (0.1-0.6) 09/09/16 06:30 Eos # 0.3 (0.0-0.7) 09/09/16 06:30 Baso # 0.02 K/mm3 (0.0-2.0) 09/09/16 06:30 PT 11.1 Seconds (9.9-11.8) 09/07/16 21:45 INR 1.03 (0.93-1.08) 09/07/16 21:45 APTT 24.3 Seconds (23.7-30.8) 09/07/16 21:45 pO2 129 mm/Hg (30-55) H 09/08/16 01:00 VBG pH 7.38 (7.32-7.43) 09/08/16 01:00 VBG pCO2 42.0 (40-60) 09/08/16 01:00 VBG HCO3 24.8 mmol/l (21-28) 09/08/16 01:00 VBG Total CO2 26.1 mmol.L (22-28) 09/08/16 01:00 VBG O2 Sat (Calc) 99.9 % (40-65) H 09/08/16 01:00 VBG Base Excess -0.4 mmol/L (0.0-2.0) L 09/08/16 01:00 VBG Potassium 3.6 mmol/L (3.6-5.2) 09/08/16 01:00 Sodium 140.0 mmol/L (132-148) 09/08/16 01:00 Chloride 109.0 mmol/L (98-107) H 09/08/16 01:00 Glucose 148 mg/dl (65-105) H 09/08/16 01:00 Lactate 1.8 mmol/L (0.7-2.1) 09/08/16 01:00 FiO2 21.0 % 09/08/16 01:00 Sodium 140 mmol/L (132-148) 09/09/16 06:30 Potassium 4.2 mmol/L (3.6-5.0) 09/09/16 06:30 Chloride 109 mmol/L (98-107) H 09/09/16 06:30 Carbon Dioxide 22 mmol/L (21-33) 09/09/16 06:30 Anion Gap 13 (10-20) 09/09/16 06:30 BUN 10 mg/dL (7-21) 09/09/16 06:30 Creatinine 0.8 mg/dL (0.5-1.4) 09/09/16 06:30 Est GFR ( Amer) > 60 09/09/16 06:30 Est GFR (Non-Af Amer) > 60 09/09/16 06:30 Random Glucose 86 mg/dL (70-110) 09/09/16 06:30 Lactic Acid 1.1 mmol/L (0.7-2.1) 09/08/16 07:10 Calcium 8.6 mg/dL (8.4-10.5) 09/09/16 06:30 Phosphorus 3.8 mg/dL (2.5-4.5) 09/07/16 21:45 Magnesium 1.7 mg/dL (1.7-2.2) 09/07/16 21:45 Total Bilirubin 0.5 mg/dL (0.2-1.3) 09/09/16 06:30 Direct Bilirubin 0.3 mg/dL (0.0-0.4) 09/08/16 20:50 AST 104 U/L (15-39) H 09/09/16 06:30 ALT 180 U/L (7-56) H 09/09/16 06:30 Alkaline Phosphatase 55 U/L (38-133) 09/09/16 06:30 Troponin I < 0.01 ng/mL D 09/08/16 20:50 Total Protein 6.3 g/dL (5.8-8.3) 09/09/16 06:30 Albumin 3.3 g/dL (3.0-4.8) 09/09/16 06:30 Globulin 2.9 gm/dL 09/09/16 06:30 Albumin/Globulin Ratio 1.1 (1.1-1.8) 09/09/16 06:30 Procalcitonin 0.81 NG/ML (0.19-0.49) H 09/08/16 07:10 FSH 3rd Generation 5.0 mIU/mL 09/08/16 07:10 Luteinizing Hormone 14.3 mIU/mL 09/08/16 07:10 Venous Blood Potassium 3.6 mmol/L (3.6-5.2) 09/08/16 01:00 Urine Color [place] (YELLOW) 09/07/16 22:45 Urine Appearance Sl cloudy (CLEAR) 09/07/16 22:45 Urine pH 7.0 (4.7-8.0) 09/07/16 22:45 Ur Specific [place] 1.020 (1.005-1.035) 09/07/16 22:45 Urine Protein 30 mg/dL (<30 mg/dL) H 09/07/16 22:45 Urine Glucose (UA) Negative mg/dL (NEGATIVE) 09/07/16 22:45 Urine Ketones Trace mg/dL (NEGATIVE) H 09/07/16 22:45 Urine Blood Negative (NEGATIVE) 09/07/16 22:45 Urine Nitrate Positive (NEGATIVE) H 09/07/16 22:45 Urine Bilirubin Small (NEGATIVE) H 09/07/16 22:45 Urine Urobilinogen 1.0 E.U./dL (<1 E.U./dL) H 09/07/16 22:45 Ur Leukocyte Esterase Trace Cammy/uL (NEGATIVE) H 09/07/16 22:45 Urine RBC 0 - 2 /hpf (0-2) 09/07/16 22:45 Urine WBC 1 - 3 /hpf (0-6) 09/07/16 22:45 Ur Epithelial Cells 6 - 8 /hpf (0-5) 09/07/16 22:45 Urine Bacteria Large (NEG) 09/07/16 22:45 Urine Opiates Screen Negative (NEGATIVE) 09/07/16 23:00 Urine Methadone Screen Negative (NEGATIVE) 09/07/16 23:00 Ur Barbiturates Screen Negative (NEGATIVE) 09/07/16 23:00 Ur Phencyclidine Scrn Negative (NEGATIVE) 09/07/16 23:00 Ur Amphetamines Screen Negative (NEGATIVE) 09/07/16 23:00 U Benzodiazepines Scrn Negative (NEGATIVE) 09/07/16 23:00 U Oth Cocaine Metabols Negative (NEGATIVE) 09/07/16 23:00 U Cannabinoids Screen Negative (NEGATIVE) 09/07/16 23:00 Attending/Attestation - Attestation I have personally seen and examined this patient.: Yes I have fully participated in the care of the patient.: Yes I have reviewed all pertinent clinical information, including history, physical exam and plan: Yes Notes (Text): 09/09/16 18:10 Patient seen and examined at bedside. Labs, vitals and overnight issues reviewed. Cultures remain negative.Cardiology evaluation appreciated and outpatient stress test advised. Neurology evaluation reviewed. ID consultation reviewed and 7 days of antibiotics will be prescribed on discharge. Agree with the remainder of the discharge plan as outlined by the resident. patient denies any new complaints and is table for discharge.
[2016-09-09] MEDS: Sodium Chloride 0.9% 1,000 ML IV SCH (15:53)
[2016-09-09 17:51] VITALS: BP 145/76; PULSE 72; RESP 18; TEMP 98.5
--- NOTE | 2016-09-09 17:58 | CP.PCM.CON ---
History of Present Illness - History of Present Illness History of Present Illness: Mrs. Zarate is a 41-year-old woman with a past medical history of migraine headaches and RA who states that she was eating and suddenly felt flushed, light -headed and eventually had a brief syncopal episode. She called EMS and was brought to the ED where she was found to have UTI on urinalysis and was started on cefepime. Her LFTs were elevated. She had no other syncopal episodes and was anxious to go home today. CT head did not show any acute findings. Review of Systems - Review of Systems All systems: reviewed and no additional remarkable complaints except Past Patient History - Infectious Disease Hx of Infectious Diseases: None - Past Social History Smoking Status: Never Smoked - CARDIAC Hx Hypertension: Yes - MUSCULOSKELETAL/RHEUMATOLOGICAL Hx Arthritis: Yes Hx Rheumatoid Arthritis: Yes - PSYCHIATRIC Hx Substance Use: No - SURGICAL HISTORY Hx Surgeries: No - ANESTHESIA Hx Anesthesia: No Meds Allergies/Adverse Reactions: Allergies Allergy/AdvReac Type Severity Reaction Status Date / Time shellfish derived Allergy RASH Verified 09/07/16 21:32 - Medications Medications: Current Medications Cefepime HCl (Maxipime 1gm) 1 gm in 100 mls @ 100 mls/hr IVPB Q12 JOSIE PRN Reason: Protocol Last Admin: 09/09/16 09:37 Dose: 100 mls/hr Sodium Chloride (Sodium Chloride 0.9%) 1,000 mls @ 100 mls/hr IV .Q10H [facility] Last Admin: 09/09/16 15:53 Dose: 100 mls/hr Ibuprofen (Motrin Tab) 400 mg PO Q6H PRN PRN Reason: Headache Pantoprazole Sodium (Protonix Inj) 40 mg IVP DAILY [facility] Last Admin: 09/09/16 09:36 Dose: 40 mg Physical Exam - Constitutional Appears: Well - Head Exam Head Exam: ATRAUMATIC, NORMAL INSPECTION, NORMOCEPHALIC - Eye Exam Eye Exam: EOMI, Normal appearance, PERRL - ENT Exam ENT Exam: Mucous Membranes Moist, Normal Exam - Neck Exam Neck exam: Positive for: Normal Inspection - Respiratory Exam Respiratory Exam: Clear to Auscultation Bilateral, NORMAL BREATHING PATTERN - Cardiovascular Exam Cardiovascular Exam: REGULAR RHYTHM, +S1, +S2 - GI/Abdominal Exam GI & Abdominal Exam: Normal Bowel Sounds, Soft. absent: Tenderness - Extremities Exam Extremities exam: Positive for: normal inspection - Back Exam Back exam: NORMAL INSPECTION - Neurological Exam Neurological exam: Alert, CN II-XII Intact, Normal Gait, Oriented x3, Reflexes Normal - Expanded Neurological Exam Expanded Patient oriented to: person, place, time Cranial nerves: EOM's Intact: Normal, Facial Palsey w/Forehead Movement: Normal , Facial Palsey w/o Forehead Movement: Normal, Facial Sensation: Normal Ataxia: No Cerebellar Function: Finger to Nose: Normal, Heel to Cuello: Normal, Romberg: Normal Upper motor neuron: Babinski Sign: Normal Sensory exam: Lower Extremity 2 Point Discrimination: Normal, Lower Extremity Light Touch: Normal, Lower Extremity Pin Prick: Normal, Lower Extremity Temperature: Normal, Upper Extremity 2 Point Discrimination: Normal, Upper Extremity Light Touch: Normal, Upper Extremity Pin Prick: Normal, Upper Extremity Temperature: Normal Neuro motor strength exam: Left Upper Extremity: 5, Right Upper Extremity: 5, Left Lower Extremity: 5, Right Lower Extremity: 5 DTR: Achilles Tendon Left: 2+, Achilles Tendon Right: 2+, Bicep Left: 2+, Bicep Right: 2+, Brachioradialis Left: 2+, Brachioradialis Right: 2+, Patellar Left: 2 +, Patellar Right: 2+, Tricep Left: 2+, Tricep Right: 2+ - Psychiatric Exam Psychiatric exam: Normal Affect, Normal Mood - Skin Skin Exam: Dry, Intact, Normal Color, Warm Results - Vital Signs Recent Vital Signs: Last Vital Signs Temp 98.5 F 09/09/16 17:49 Pulse 72 09/09/16 17:49 Resp 18 09/09/16 17:49 BP 145/76 09/09/16 17:49 Pulse Ox 98 09/09/16 06:00 - Labs Result Diagrams: 09/09/16 06:30 09/09/16 06:30 Labs: Laboratory Results - last 24 hr 09/08/16 09/09/16 09/09/16 20:50 06:30 06:30 WBC 6.3 D RBC 3.76 Hgb 11.7 L Hct 35.7 L MCV 94.9 MCH 31.1 MCHC 32.8 RDW 12.7 Plt Count 226 MPV 11.5 H Gran % 43.9 L Lymph % (Auto) 45.7 H Sawyer % (Auto) 6.2 H Eos % (Auto) 3.9 Baso % (Auto) 0.3 Gran # 2.78 Lymph # 2.9 Sawyer # 0.4 Eos # 0.3 Baso # 0.02 Sodium 140 Potassium 4.2 Chloride 109 H Carbon Dioxide 22 Anion Gap 13 BUN 10 Creatinine 0.8 Est GFR ( Amer) > 60 Est GFR (Non-Af Amer) > 60 Random Glucose 86 Calcium 8.6 Total Bilirubin 0.4 0.5 Direct Bilirubin 0.3 AST 171 H 104 H ALT 218 H 180 H Alkaline Phosphatase 61 55 Troponin I < 0.01 D Total Protein 6.9 6.3 Albumin 3.7 3.3 Globulin 3.1 2.9 Albumin/Globulin Ratio 1.2 1.1 Assessment & Plan - Assessment and Plan (Free Text) Assessment: Likely neurocardiogenic syncope. Plan: Treat underlying infection. Continue fluids. Orthostatics. Follow up with rheumatology for RA and her neurologist in [place]. Thank you.
--- NOTE | 2016-09-09 18:04 | CP.PCM.PN ---
Subjective - Date & Time of Evaluation Date of Evaluation: 09/09/16 Time of Evaluation: 16:00 - Subjective Subjective: Infectious Disease Follow Up: September 09, 2016 41 yo female with near syncopal episode. She was lightheaded and dizzy. She complains of feeling weak and tired. According to EMS, the patient did lose consciousness. Urine studies suggesting UTI. Cultures have been negative. Objective - Vital Signs/Intake and Output Vital Signs (last 24 hours): Temp Pulse Resp BP Pulse Ox 98.6 F 73 16 131/77 98 09/09/16 12:00 09/09/16 14:00 09/09/16 12:00 09/09/16 12:00 09/09/16 06:00 Intake and Output: 09/09/16 09/09/16 06:59 18:59 Intake Total 480 Balance 480 - Medications Medications: Current Medications Cefepime HCl (Maxipime 1gm) 1 gm in 100 mls @ 100 mls/hr IVPB Q12 JOSIE PRN Reason: Protocol Last Admin: 09/09/16 09:37 Dose: 100 mls/hr Sodium Chloride (Sodium Chloride 0.9%) 1,000 mls @ 100 mls/hr IV .Q10H JOSIE Last Admin: 09/09/16 15:53 Dose: 100 mls/hr Ibuprofen (Motrin Tab) 400 mg PO Q6H PRN PRN Reason: Headache Pantoprazole Sodium (Protonix Inj) 40 mg IVP DAILY [facility] Last Admin: 09/09/16 09:36 Dose: 40 mg - Labs Labs: 09/09/16 06:30 09/09/16 06:30 PT 11.1 Seconds (9.9-11.8) 09/07/16 21:45 INR 1.03 (0.93-1.08) 09/07/16 21:45 APTT 24.3 Seconds (23.7-30.8) 09/07/16 21:45 - Constitutional Appears: Non-toxic, No Acute Distress - Head Exam Head Exam: ATRAUMATIC, NORMOCEPHALIC - Eye Exam Eye Exam: EOMI, PERRL Pupil Exam: NORMAL ACCOMODATION, PERRL - ENT Exam ENT Exam: Mucous Membranes Moist, Normal External Ear Exam, TM's Normal Bilaterally - Neck Exam Neck Exam: Full ROM, Normal Inspection - Respiratory Exam Respiratory Exam: Clear to Ausculation Bilateral, NORMAL BREATHING PATTERN. absent: Rales, Rhonchi, Wheezes - Cardiovascular Exam Cardiovascular Exam: REGULAR RHYTHM, RRR, +S1, +S2 - GI/Abdominal Exam GI & Abdominal Exam: Soft, Normal Bowel Sounds. absent: Distended, Tenderness - Extremities Exam Extremities Exam: Full ROM, Normal Inspection - Neurological Exam Neurological Exam: Alert, Awake, CN II-XII Intact, Oriented x3 - Psychiatric Exam Psychiatric exam: Normal Affect, Normal Mood - Skin Skin Exam: Intact, Normal Color Assessment and Plan - Assessment and Plan (Free Text) Assessment: 41 yo female with syncopal episode. Cannot rule out dehydration and UTI as potential causes. There is also a history of migraines, rheumatoid arthritis, and urinary incontinence. Patient started on Cefepime for antibiotic coverage. Urine cultures pending at this time. Dehydration also played a part in this patient's condition with elevation in BUN and Creatinine. Urinalysis is suggestive of UTI. Afebrile while in hospital so far. Thank you for allowing me to participate in the care of the patient, we will follow with you. Consider up to 7 days of antibiotics (possibly PO) depending on urine culture results. Cultures are negative to date.
== END 2016-09-09 19:20 | disposition home or self-care (01) ==
LOC: ED 21:29 → ERH 09-08 00:28 → 2RNO 09-08 02:02
PROVIDERS: ADMIT Internal Medicine; ATTEND Internal Medicine
DX: I95.9 Hypotension, unspecified (principal); E86.0 Dehydration; N39.0 Urinary tract infection, site not specified; G43.909 Migraine, unspecified, not intractable, without status migrainosus; I10 Essential (primary) hypertension; M06.9 Rheumatoid arthritis, unspecified; R32 Unspecified urinary incontinence; Z82.0 Family history of epilepsy and other diseases of the nervous system; Z82.49 Family history of ischemic heart disease and other diseases of the circulatory system; Z91.013 Allergy to seafood; M19.90 Unspecified osteoarthritis, unspecified site
CPT/HCPCS: 36415; 70450; 74176; 76700; 80053; 80324; 80345; 80346; 80349; 80353; 80358; 80361; 81001; 82803; 83001; 83002; 83605; 83735; 83992; 84100; 84145; 84484; 85025; 85610; 85730; 87040; 87086; 93005; 93306; 96365; 96366; 96375; 96376; 99285; C9113; G0378; J0692; J7040

== ENCOUNTER 2016-09-30 22:52 | Emergency (ER) | payer OTHER ==
[2016-09-30 22:52] VITALS: BMI 27.4
[2016-09-30 23:19] VITALS: TEMP 99.4; O2SAT 98
--- NOTE | 2016-09-30 23:37 | ED PDOC ---
Arrival/HPI - General Chief Complaint: Dizziness/Lightheaded Time Seen by Provider: 09/30/16 23:30 Historian: Patient - History of Present Illness Narrative History of Present Illness (Text): 09/30/16 23:37 Rica Zarate is a 41 year old female, whose past medical history includes migraine headaches, who presents to the ED complaining of light-headedness tonight. Patient states while at home tonight she became hot/flushed, light- headed, and dizzy. Patient also reports headache currently, similar to previous migraine headaches. Patient states she was seen in the Emergency department for similar symptoms on 09/07/2016 and was admitted to the hospital. Patient denies any fever, chills, chest pain, shortness of breath, nausea, vomiting, diarrhea, urinary symptoms, back pain, neck pain, headache, dizziness, or any other complaints. Symptom Onset: Gradual Symptom Course: Unchanged Activities at Onset: Rest, Light Context: Home Past Medical History - Provider Review Nursing Documentation Reviewed: Yes - Infectious Disease Hx of Infectious Diseases: None - Cardiac Hx Hypertension: Yes - Musculoskeletal/Rheumatological Hx Arthritis: Yes Hx Rheumatoid Arthritis: Yes - Genitourinary/Gynecological Hx Genitourinary Disorders: No - Psychiatric Hx Psychophysiologic Disorder: No Hx Substance Use: No - Anesthesia Hx Anesthesia: No Family/Social History - Physician Review Nursing Documentation Reviewed: Yes Family/Social History: Unknown Family HX Smoking Status: Never Smoked Hx Alcohol Use: No Hx Substance Use: No Allergies/Home Meds Allergies/Adverse Reactions: Allergies shellfish derived Allergy (Verified 09/30/16 23:52) RASH Home Medications: Home Meds Medication Instructions Recorded Confirmed No Known Home Med 09/30/16 09/30/16 Review of Systems - Physician Review All systems were reviewed & negative as marked: Yes - Review of Systems Constitutional: Normal. absent: Fevers Eyes: Normal ENT: Normal Respiratory: Normal. absent: SOB, Cough Cardiovascular: Normal. absent: Chest Pain Gastrointestinal: Normal. absent: Abdominal Pain, Diarrhea, Nausea, Vomiting Genitourinary Female: Normal. absent: Dysuria, Frequency, Hematuria, Urine Output Changes Musculoskeletal: Normal. absent: Back Pain, Neck Pain Skin: Normal Neurological: Headache, Dizziness, Other (+light-headed) Endocrine: Normal Hemo/Lymphatic: Normal Psychiatric: Normal Physical Exam Vital Signs Reviewed: Yes Vital Signs Temp Pulse Resp BP Pulse Ox 10/01/16 01:00 82 14 130/82 98 09/30/16 23:18 99.4 F 84 18 143/92 H 98 Temperature: Afebrile Blood Pressure: Normal Pulse: Regular Respiratory Rate: Normal Appearance: Positive for: Well-Appearing, Non-Toxic, Comfortable Pain Distress: None Mental Status: Positive for: Alert and Oriented X 3 - Systems Exam Head: Present: Atraumatic, Normocephalic Pupils: Present: PERRL Extroacular Muscles: Present: EOMI Conjunctiva: Present: Normal Mouth: Present: Moist Mucous Membranes Neck: Present: Normal Range of Motion. No: Meningeal Signs, MIDLINE TENDERNESS , Paraspinal Tenderness Respiratory/Chest: Present: Clear to Auscultation, Good Air Exchange. No: Respiratory Distress, Accessory Muscle Use Cardiovascular: Present: Regular Rate and Rhythm, Normal S1, S2. No: Murmurs Abdomen: Present: Normal Bowel Sounds. No: Tenderness, Distention, Peritoneal Signs Back: Present: Normal Inspection. No: CVA Tenderness, Midline Tenderness, Paraspinal Tenderness Upper Extremity: Present: Normal Inspection. No: Cyanosis, Edema Lower Extremity: Present: Normal Inspection. No: Edema Neurological: Present: GCS=15, CN II-XII Intact, Speech Normal, Motor Func Grossly Intact, Normal Sensory Function, Normal Cerebellar Funct Skin: Present: Warm, Dry, Normal Color. No: Rashes Psychiatric: Present: Alert, Oriented x 3, Normal Insight, Normal Concentration Medical Decision Making ED Course and Treatment: 09/30/16 23:37 Impression: 41 year old female complaining of hot flash, dizziness, headache, and light- headedness tonight. Plan: -- EKG -- Reglan -- Reassess and disposition Prior Visits: Notes and results from previous visits were reviewed. On 09/07/2016, pt was seen in the Emergency department for lower abdominal pain and syncope. Pt was admitted to the hospital for further evaluation. Progress Notes: Reviewed EKG, NSR at [address]-segment elevations or depressions, no T-wave inversions, normal intervals. 10/01/16 00:40 On reevaluation the patient feels 100% better and is in no acute distress. I have discussed the results and plan with the patient, who expresses understanding. Patient given the opportunity to ask question, all questions were answered and there is agreement with the plan to discharge the patient home. Patient is stable for discharge. Patient was instructed to follow up with physician/clinic in 1-2 days or return if symptoms persist/worsen or new concerning symptoms arise. Re-evaluation Time: 00:40 Reassessment Condition: Re-examined, Improved - Lab Interpretations Lab Results: Lab Results 10/01/16 00:26: POC Glucose (mg/dL) 114 H - EKG Interpretation EKG Interpretation (Text): EKG: Ordered, reviewed, and independently interpreted the EKG. Rate : 70 BPM Rhythm : NSR Interpretation : No ST-segment elevations or depressions, no T-wave inversions, normal intervals. Comparison : No acute change from previous EKG on 09/07/2016. Interpreted by ED Physician: Yes Type: 12 lead EKG - Medication Orders Current Medication Orders: Discontinued Medications Metoclopramide HCl (Reglan) 10 mg IVP ONCE ONE Stop: 09/30/16 23:39 Last Admin: 10/01/16 00:09 Dose: 10 mg - Scribe Statement The provider has reviewed the documentation as recorded by the Talat Grande Provider Scribe Attestation: All medical record entries made by the Talat were at my direction and personally dictated by me. I have reviewed the chart and agree that the record accurately reflects my personal performance of the history, physical exam, medical decision making, and the department course for this patient. I have also personally directed, reviewed, and agree with the discharge instructions and disposition. Disposition/Present on Arrival - Present on Arrival Any Indicators Present on Arrival: No History of DVT/PE: No History of Uncontrolled Diabetes: No Urinary Catheter: No History of Decub. Ulcer: No History Surgical Site Infection Following: None - Disposition Have Diagnosis and Disposition been Completed?: Yes Diagnosis: Migraine Disposition: HOME/ ROUTINE Disposition Time: 00:41 Condition: GOOD Discharge Instructions (ExitCare): Migraine Headache (ED)
[2016-10-01 01:01] VITALS: BP 130/82; PULSE 82; RESP 14
--- NOTE | 2016-10-01 21:13 | CARD ---
APPROVED REPORT EKG Measurement Heart [id number] ID [id number] <Conclusion> Normal sinus rhythm Normal ECG
== END 2016-10-01 01:05 | disposition home or self-care (01) ==
LOC: ED 22:52
DX: G43.909 Migraine, unspecified, not intractable, without status migrainosus (principal)
CPT/HCPCS: 82948; 93005; 96374; 99285; J2765

== ENCOUNTER 2017-11-29 18:13 | Emergency (ER) | payer BC ==
[2017-11-29 18:25] VITALS: BMI 31.6
--- NOTE | 2017-11-29 18:47 | RAD ---
PROCEDURE: Right Hand Radiographs. HISTORY: right hand injury COMPARISON: None. FINDINGS: BONES: Normal. No fracture. JOINTS: Normal. No osteoarthritic changes. SOFT TISSUES: Normal. OTHER FINDINGS: None. IMPRESSION: Normal right hand radiographs.
[2017-11-29 19:16] VITALS: BP 125/86; PULSE 86; RESP 17; O2SAT 100
[2017-11-29 19:18] VITALS: TEMP 98
--- NOTE | 2017-11-29 19:25 | ED PDOC ---
Arrival/HPI - General Chief Complaint: Finger,Hand,&Wrist Time Seen by Provider: 11/29/17 18:20 Historian: Patient - History of Present Illness Narrative History of Present Illness (Text): 11/29/17 19:17 42 year old female with PMH of RA and hypertension who presents to the Emergency department complaining of right hand 2nd digit pain and bruising s/p crush injury from car door yesterday afternoon. Since the incident, the pts pain and swelling has been increasing, with worsening hematoma under the fingernail. Pt is having difficulty bending the finger secondary to pain. She also has a small nailbed laceration. Pt is not on blood thinners. Denies numbness, paresthesias, fever, chills, wound drainage, wrist pain, pain elsewhere on hand. Past Medical History - Provider Review Nursing Documentation Reviewed: Yes - Infectious Disease Hx of Infectious Diseases: None - Reproductive Menopause: No - Cardiac Hx Hypertension: Yes - Musculoskeletal/Rheumatological Hx Arthritis: Yes Hx Rheumatoid Arthritis: Yes - Genitourinary/Gynecological Other/Comment: HX: ABNORMAL UTERINE BLEEDING - Psychiatric Hx Substance Use: No - Surgical History Other/Comment: HX: BLADDER LIFT - Anesthesia Hx Anesthesia: No Hx Anesthesia Reactions: No Hx Malignant Hyperthermia: No Family/Social History - Physician Review Nursing Documentation Reviewed: Yes Family/Social History: No Known Family HX Smoking Status: Never Smoked Hx Alcohol Use: No Hx Substance Use: No Allergies/Home Meds Allergies/Adverse Reactions: Allergies shellfish derived Allergy (Verified 09/30/16 23:52) RASH EPIDURAL Allergy (Intermediate, Uncoded 10/23/17 09:38) RASH Review of Systems - Review of Systems Constitutional: Normal. absent: Fevers Respiratory: Normal Cardiovascular: Normal Gastrointestinal: Normal Musculoskeletal: Arthralgias (right hand 2nd digit) Skin: Laceration (right hand 2nd digit nailbed), Other (swelling, bruising, and redness to right hand 2nd digit) Neurological: Normal Physical Exam Vital Signs Reviewed: Yes Vital Signs Temp Pulse Resp BP Pulse Ox 11/29/17 19:15 98.2 F 86 17 125/86 100 Temperature: Afebrile Blood Pressure: Normal Pulse: Regular Respiratory Rate: Normal Appearance: Positive for: Well-Appearing, Non-Toxic, Comfortable Pain Distress: None Mental Status: Positive for: Alert and Oriented X 3 - Systems Exam Respiratory/Chest: Present: Clear to Auscultation, Good Air Exchange. No: Respiratory Distress, Accessory Muscle Use Cardiovascular: Present: Regular Rate and Rhythm, Normal S1, S2. No: Murmurs Upper Extremity: Present: NORMAL PULSES, Tenderness (right 2nd digit distal phalanx), Swelling (right 2nd digit), Erythema (right 2nd digit), Neurovascularly Intact. No: Normal ROM (right 2nd digit ROM decreased secondary to pain), Temperature Abnormalties, Deformity Lower Extremity: Present: Normal Inspection, NORMAL PULSES, Normal ROM Neurological: Present: GCS=15, Speech Normal, Motor Func Grossly Intact, Normal Sensory Function, Normal Cerebellar Funct, Gait Normal Skin: Present: Warm, Dry, Normal Color, Laceration (right 2nd digit nailbed). No: Rashes Psychiatric: Present: Alert, Oriented x 3, Normal Insight, Normal Concentration Medical Decision Making ED Course and Treatment: 11/29/17 19:17 42 year old female with no significant PMH who presents to the Emergency department complaining of right hand 2nd digit injury s/p crush injury from car door yesterday afternoon. Since the incident, the pts pain and swelling has been increasing, with worsening hematoma under the fingernail. Pt is having difficulty bending the finger secondary to pain. She also has a small nailbed laceration. Denies numbness, paresthesias, fever, chills, wound drainage, wrist pain, pain on hand elsewhere. Physical exam reveals swollen, erythematous, tender right 2nd digit with decreased ROM secondary to pain. Small laceration on nailbed with associated hematoma. Neurovascularly intact. Will order R hand xray Will consult Dr. Otis Berg read Xray as a displaced fracture of the right 2nd digit, distal phalanx Dr. Berg saw pt and removed nail, sutured laceration, and dressed wound. right 2nd digit splinted. Dr. Berg developed the pt plan Impression: Open fracture right 2nd digit Plan: Take 800mg Motrin every 6 hours as needed for pain Take 500mg Keflex every 8 hours for [address] Berg as scheduled on Saturday Keep dressing in place until followup Return to Emergency department if symptoms persist or worsen - RAD Interpretation Narrative RAD Interpretations (Text): 11/29/17 19:31 Displaced fracture of right hand 2nd digit, distal phalanx Radiology Orders: 11/29/17 18:27 HAND RIGHT 3 VIEWS [RAD] Stat Priest: Activities Assistant (Dr. Berg.) Disposition/Present on Arrival - Present on Arrival Any Indicators Present on Arrival: No History of DVT/PE: No History of Uncontrolled Diabetes: No Urinary Catheter: No History of Decub. Ulcer: No History Surgical Site Infection Following: None - Disposition Have Diagnosis and Disposition been Completed?: Yes Diagnosis: Open fracture of phalanx of digit of hand Disposition: HOME/ ROUTINE Disposition Time: 19:15 Patient Plan: Discharge Patient Problems: Current Active Problems Problem Status Onset Open fracture of phalanx of digit of hand Acute Condition: IMPROVED Discharge Instructions (ExitCare): Finger Fracture Additional Instructions: Take 800mg Motrin every 6 hours as needed for pain Take 500mg Keflex every 8 hours for [address] Berg as scheduled on Saturday Keep dressing in place until followup Return to Emergency department if symptoms persist or worsen Prescriptions: Cephalexin [Keflex] 500 mg PO QID 10 Days #40 capsule Ibuprofen [Motrin Tab] 800 mg PO Q6H PRN #20 tab PRN Reason: Pain, Moderate (4-7) Referrals: Lavonne Rogers DO [Primary Care Provider] - Follow up with primary Forms: [facility] (Polish), WORK NOTE
--- NOTE | 2017-12-03 00:09 | CON ---
DATE: 11/29/2017 EMERGENCY ROOM CONSULTATION SURGEON: America Berg MD HISTORY OF PRESENT ILLNESS: This is a 42-year-old right hand dominant female who crushed her right index finger in the door. She presented to the emergency room with a crushed injury. X-ray done by the ER staff showed a small right index finger distal phalanx tuft fracture. I was consulted to the hand surgeon cardiac surgeon for this crush injury. PHYSICAL EXAMINATION: Patient's right index finger, there was subungual hematoma. She had a tender distal phalanx bone. She is able to flex and extend the digit, but it was limited secondary to pain and swelling. There were some paraesthesias to the tip of the finger. I explained to the patient, she likely has an underlying nail bed laceration based on her x-ray and clinical exam. I told her, I would treat her fracture in a closed manner. After removing the nail plate, after regional anesthesia and repairing the nail bed. I told her that the paraesthesias may persist secondary to the crush injury. She may have abnormal nail growth and I told her she needed to be on antibiotics because of the open fracture. She understood this and wish to proceed. Hand exam for her, the fingers were within normal limit. I will now dictate a separate operative report. America Berg MD
--- NOTE | 2017-12-03 00:36 | OP ---
PROCEDURE DATE: 11/29/2017 SURGEON: America Berg MD PREOPERATIVE DIAGNOSES: As follows; 1. Crush injury to right index finger. 2. Right index finger distal phalanx tuft fracture. 3. Right index finger nail bed laceration. 4. Right index finger subungual hematoma. POSTOPERATIVE DIAGNOSES: 1. Crush injury to right index finger. 2. Right index finger distal phalanx tuft fracture. 3. Right index finger nail bed laceration. 4. Right index finger subungual hematoma. PROCEDURE PERFORMED: As follows; 1. Repair of right index finger, nail bed laceration. 2. Closed treatment without manipulation of right index finger distal phalanx tuft fracture. 3. Debridement of soft tissue at open fracture site of the right index finger. 4. Decompression of right index finger, subungual hematoma. ANESTHESIA: Regional, 1. Right index finger radial digital nerve block. 2. Right index finger ulnar digital nerve block. INDICATIONS FOR THE PROCEDURE: As follows, please refer to my separately dictated ER consultation for history and physical. DESCRIPTION OF PROCEDURE: As follows, a 0.5 Marcaine was used in the right index finger, radial and ulnar digital nerve block. After allowing sufficient time for the anesthetic to take effect, the wound was soaked in normal saline and dilute Betadine. The area was prepped and draped in usual clean and sterile manner. I placed a tourniquet at the base of the right index finger, which was removed at the end of the case. I started the operation by exploring the finger of the right digit dissecting off the nerve plate from the nail bed, soaked the nail plate in the Betadine. There was a nail bed laceration of the sterile matrix. There is an irregular soft tissue at the open fracture site, which is debrided. I repaired the nail bed laceration with 6-0 fast absorbing sutures in the interrupted fashion. I treated the distal phalanx tuft fracture, open fracture in a closed manner without manipulation. I placed the nail plate, which was soaked in Betadine on the eponychial fold and secured in place. The 4-0 Chromic sutures when we took out the nail plate we decompressed the subungual hematoma. I then removed the tourniquet placed. Xeroform dry sterile dressing in a finger splint. Patient tolerated the procedure well and was eventually discharged home from the Emergency Room in stable condition with oral antibiotics, postop wound care, limitation of physical activities, need to keep the dressing on and dry and arm elevated, to take antibiotics and follow up with me. The possibility of paresthesias persisting and abnormal nail growth were discussed . All questions were answered. America Berg MD
== END 2017-11-29 19:18 | disposition home or self-care (01) ==
LOC: ED 18:13
DX: S62.630B Displaced fracture of distal phalanx of right index finger, initial encounter for open fracture (principal); S67.190A Crushing injury of right index finger, initial encounter; S61.310A Laceration without foreign body of right index finger with damage to nail, initial encounter; S60.121A Contusion of right index finger with damage to nail, initial encounter; W23.0XXA Caught, crushed, jammed, or pinched between moving objects, initial encounter; M06.9 Rheumatoid arthritis, unspecified; I10 Essential (primary) hypertension